=== PATIENT | female | born 1985 | race Caucasian/White ===

== ENCOUNTER 2017-01-02 05:02 | Inpatient (IN) | payer BC ==
--- NOTE | 2017-01-01 13:33 | PCM.PREANE ---
<Anthony Weller E - Last Filed: 01/01/17 13:31> Preanesthetic Assessment - ANESTHESIA/TRANSFUSION/FAMILY HX Anesthesia/Transfusion History: No Prior Transfusion(s), Prior Anesthesia Other Type of Anesthesia Reaction Comment: DENIES ANY PROBLEMS WITH ANESTHESIA Family History of Anesthesia Reaction: No - REVIEW OF SYSTEMS Constitutional: Reports: no symptoms PROCED TECH: Reports: no symptoms Respiratory: Reports: no symptoms Cardiovascular: Reports: no symptoms GI: Reports: no symptoms Other: Reports: none - PHYSICAL ASSESSMENT Height: 5 ft 5 in Weight: 182 lb ASA Class: 2 - LAB Values: Laboratory Last Values WBC 5.94 K/uL (4.0-11.0) 01/02/17 05:40 RBC 3.75 M/uL (4.30-5.90) L 01/02/17 05:40 Hgb 11.5 g/dL (12.0-16.0) L 01/02/17 05:40 Hct 34.7 % (36.0-46.0) L 01/02/17 05:40 MCV 92.5 fL (80.0-98.0) 01/02/17 05:40 MCH 30.7 pg (27.0-32.0) 01/02/17 05:40 MCHC 33.1 g/dL (31.0-37.0) 01/02/17 05:40 RDW Std Deviation 45.8 fl (28.0-62.0) 01/02/17 05:40 RDW Coeff of Yamila 14 % (11.0-15.0) 01/02/17 05:40 Plt Count 223 K/uL (150-400) 01/02/17 05:40 MPV 9.40 fL (7.40-12.00) 01/02/17 05:40 Blood Type A POSITIVE 01/02/17 05:40 Antibody Screen NEGATIVE 01/02/17 05:40 - ALLERGIES Allergies/Adverse Reactions: Allergies Allergy/AdvReac Type Severity Reaction Status Date / Time No Known Allergies Allergy Verified 01/02/17 05:12 - ANESTHESIA PLAN Anesthesia Type Planned: general anesthesia, spinal (with duramorph) - ACKNOWLEDGEMENTS Pt an appropriate candidate for the planned anesthesia: Yes Alternatives and risks of anesthesia discussed w pt/guardian: Yes Pt/Guardian understands and agree with anesthesia plan: Yes PreAnesthesia Questionnaire HEENT History: Reports: None Cardiovascular History: Reports: None Respiratory History: Reports: None Gastrointestinal History: Reports: GERD, Other (see below) Other Gastrointestinal History: occasional heartburn with Genitourinary History: Reports: None RELIEF PHARMACIST History: Reports: LMP (Approximate): Musculoskeletal History: Reports: None Neurological History: Reports: None Psychiatric History: Reports: None Endocrine/Metabolic History: Reports: Obesity/BMI 30+ Hematologic History: Reports: Anemia Immunologic History: Reports: None Oncologic (Cancer) History: Reports: None Dermatologic History: Reports: None - Infectious Disease History Infectious Disease History: Reports: None - Past Surgical History Head Surgeries/Procedures: Reports: None Female Surgical History: Reports: section - SUBSTANCE USE Smoking Status *Q: Former Smoker Number of Drinks Per Day: 0 Recreational Drug Use History: No - HOME MEDS Home Medications: Home Meds Iron 1 tab PO DAILY 04/14/14 [History] Vit #108/Iron/FA [ One Tablet] 1 each PO DAILY 04/14/14 [ History] - CURRENT (IN HOUSE) MEDS Current Meds: Current Medications Citric Acid/Sodium Citrate (Bicitra Solution) 30 ml PO .ONCE MARIANO Last Admin: 01/02/17 07:18 Dose: 30 ml Lactated Ringer's (Ringers, Lactated) 1,000 mls @ 500 mls/hr IV .BOLUS [facility]IANO Last Admin: 01/02/17 06:31 Dose: 999 mls/hr Sodium Chloride (Saline Flush) 10 ml FLUSH ASDIRECTED PRN PRN Reason: Keep Vein Open Sodium Chloride (Saline Flush) 2.5 ml FLUSH ASDIRECTED PRN PRN Reason: Keep Vein Open Discontinued Medications Cefazolin Sodium/Dextrose 2 gm (/ Premix) 50 mls @ 100 mls/hr IV ONETIME ONE Stop: 01/02/17 05:56 <Serafin Lewis - Last Filed: 01/02/17 07:21> Preanesthetic Assessment - ANESTHESIA/TRANSFUSION/FAMILY HX Anesthesia/Transfusion History: No Prior Transfusion(s), Prior Anesthesia ( Prior in 2014 here) Family History of Anesthesia Reaction: No Intubation History: Unknown - REVIEW OF SYSTEMS Constitutional: Reports: no symptoms PROCED TECH: Reports: no symptoms Respiratory: Reports: no symptoms Cardiovascular: Reports: no symptoms GI: Reports: no symptoms Other: Reports: none (except GERD of ) - PHYSICAL ASSESSMENT ASA Class: 2 Mental Status: alert & oriented x3 Dentition: Reports: normal dentition Thyro-Mental Finger Breadths: 3 Mouth Opening Finger Breadths: 3 ROM/Head Extension: full Respiratory Status: lungs clear to auscultation bilaterally Cardiovascular Status: regular rate & rhythm, normal S1, S2, no murmur, blood pressure WNL - BLOOD Blood Available: Yes Product(s) Available: PRBC (T and S) - ANESTHESIA PLAN Medication Ordered: Antacids Preop Beta Michael: No Anesthesia Type Planned: spinal - ACKNOWLEDGEMENTS Pt an appropriate candidate for the planned anesthesia: Yes Alternatives and risks of anesthesia discussed w pt/guardian: Yes Pt/Guardian understands and agree with anesthesia plan: Yes
[2017-01-02] MEDS ORDERED: ceFAZolin 2 GM in Premix Bag 1 BAG IV ONE (05:27)
[2017-01-02] MEDS ORDERED: Sodium Chloride 0.9% 10 ML Syringe FLUSH PRN (05:27)
[2017-01-02] MEDS ORDERED: Sodium Chloride 0.9% 2.5 ML Syringe FLUSH PRN (05:27)
[2017-01-02] MEDS ORDERED: Citric Acid/Sodium Citrate Solution 30 ML Cup PO SCH (05:30)
[2017-01-02] MEDS: Lactated Ringers 1,000 ML IV SCH ×5 (05:40→20:38)
[2017-01-02] MEDS ORDERED: Octyl 2-Cyanoacrylate 1 Tube ONE (07:20)
[2017-01-02] MEDS ORDERED: Oxytocin 10 Units/1 ML SDV ONE (07:31)
[2017-01-02] MEDS ORDERED: Morphine PF 10 MG/10 ML SDV ONE (07:31)
[2017-01-02] MEDS ORDERED: Phenylephrine/Normal Saline 100 MCG/ML 10 ML Syringe ONE (08:04)
[2017-01-02] MEDS ORDERED: Ondansetron 4 MG/2 ML SDV ONE (08:27)
[2017-01-02] MEDS ORDERED: Naloxone 0.4 MG/ML Syringe IVPUSH PRN (08:32)
[2017-01-02] MEDS ORDERED: Nalbuphine 10 MG/1 ML Vial IVPUSH PRN (08:32)
[2017-01-02] MEDS ORDERED: diphenhydrAMINE 50 MG/ML SDV IVPUSH PRN ×2 (08:32→08:53)
[2017-01-02] MEDS ORDERED: fentaNYL 100 MCG/2 ML SDV IVPUSH PRN (08:33)
[2017-01-02] MEDS ORDERED: ePHEDrine 50 MG/ML SDV ONE (08:38)
[2017-01-02] MEDS ORDERED: Bisacodyl 10 MG Supp RECTAL PRN (08:53)
[2017-01-02] MEDS ORDERED: Aluminum Hydroxide/Magnesium Hydroxide/Simethicone Susp 30 ML Cup PO PRN (08:53)
[2017-01-02] MEDS ORDERED: Simethicone 80 MG Tab.Chew PO PRN (08:53)
[2017-01-02] MEDS ORDERED: Ondansetron 4 MG/2 ML SDV IV PRN (08:53)
[2017-01-02] MEDS ORDERED: Lanolin 100% Cream 7 GM Tube TOP PRN (08:53)
[2017-01-02] MEDS ORDERED: Acetaminophen/oxyCODONE 325-5 MG Tab PO PRN ×2 (08:53)
--- NOTE | 2017-01-02 09:04 | PCM.OPNOTE ---
- General Post-Op/Procedure Note Date of Surgery/Procedure: 01/02/17 Operative Procedure(s): Repeat LTCS with bilateral salpingectomy Findings: Term Female APGARs 8, 9 weight 3410 gm. Intact placenta with 3V cord. Normal appearing pelvis with dense uterovesicle adhesions. Pre Op Diagnosis: Previous LTCS x 2--desires repeat. Undesired fertility Post-Op Diagnosis: same Anesthesia Technique: Spinal Primary Surgeon: Tierra Noel Fluid Replacement, Intraop: 1,600 EBL in mLs: 700 Complications: none known Condition: Good Free Text/Narrative:: Intake & Output 01/01/17 01/02/17 01/02/17 22:59 06:59 14:59 Intake Total 1000 Balance 1000 Dictation [id number]
[2017-01-02] MEDS: Ketorolac 30 MG/ML SDV IVPUSH SCH ×3 (09:17→21:54)
--- NOTE | 2017-01-02 09:30 | PCM.POSTAN ---
POST ANESTHESIA ASSESSMENT - MENTAL STATUS Mental Status: alert, oriented - RESPIRATORY Respiratory Status: respiratory rate WNL, airway patent, O2 saturation stable - CARDIOVASCULAR CV Status: pulse rate WNL, blood pressure stable - GASTROINTESTINAL GI Status: no symptoms - PAIN Pain Score: 0 (receding spinal) - POST OP HYDRATION Hydration Status: adequate & stable
[2017-01-02] MEDS: Docusate Sodium 100 MG Cap PO SCH ×2 (12:44→21:55)
--- NOTE | 2017-01-02 20:08 | PCM48HPAN ---
Post Anesthesia Note - EVALUATION WITHIN 48HRS OF ANESTHETIC Vital Signs in Normal Range: Yes Patient Participated in Evaluation: Yes Respiratory Function Stable: Yes Airway Patent: Yes Cardiovascular Function Stable: Yes Hydration Status Stable: Yes Pain Control Satisfactory: Yes Nausea and Vomiting Control Satisfactory: Yes Mental Status Recovered: Yes - COMMENTS/OBSERVATIONS Free Text/Narrative:: Pt has full return of sensation and motor movement to lower extremities. Pain controlled. No nausea. Reports mild itching.
[2017-01-03] MEDS: Ketorolac 30 MG/ML SDV IVPUSH SCH ×2 (03:13→09:03)
--- NOTE | 2017-01-03 06:12 | OR ---
SURGEON: Tierra Noel M.D. DATE OF PROCEDURE: 01/02/17 PREOPERATIVE DIAGNOSES: 1. Thirty-nine week intrauterine . 2. Previous low-transverse section x2, desires repeat. 3. Undesired fertility. POSTOPERATIVE DIAGNOSES: 1. Thirty-nine week intrauterine . 2. Previous low-transverse section x2, desires repeat. 3. Undesired fertility. PROCEDURE: Repeat low-transverse section with bilateral salpingectomy. ANESTHESIA: Spinal. ESTIMATED BLOOD LOSS: 700 mL. FLUIDS: 1600 mL of crystalloid. URINE OUTPUT: 200 mL of clear urine. FINDINGS: Term female. score 8 at 1 minutes, 9 at 5 minutes. Weight of 3410 g. Intact placenta, three-vessel cord. Normal-appearing pelvis other than dense uterovesical adhesions. DISPOSITION: The patient to PACU, to nursery, stable. DESCRIPTION OF PROCEDURE: Arlin is a 31-year-old, G3, P2, at 39 weeks gestation, who presented this morning for scheduled repeat delivery. Risks of procedure have been discussed and informed consent obtained. She also no longer desires childbearing and approval from the Ethics Committee has been obtained to perform tubal ligation at the time of her repeat . The patient was taken to operating room, where she underwent spinal anesthetic, was then placed in dorsal spine position, leftward tilt. SCDs to lower extremities. Palma to gravity. She was prepped and draped in the usual sterile fashion. Received prophylactic antibiotics. A time-out was performed. Anesthesia was tested and found to be adequate. The previous Pfannenstiel scar was now excised. Subcutaneous tissue was incised down the level of the midline fascia which was incised in the midline. The fascia was now dissected sharply and bluntly laterally on either side. Superior aspect of fascia was tented upward, dissected sharply and bluntly from underlying muscles, and in similar aspect, performed the inferior aspect of fascia. Rectus muscles were now sharply in the midline and the peritoneum was tented upward and entered sharply. The rectus muscles and peritoneum were now lateralized bluntly. Uterine position was palpated, there was dense uterovesical adhesions noted. The self-retaining tractor was now gently placed and the uterovesical adhesions were lysed using Metzenbaum scissors. Bladder blade was now mobilized away from lower uterine segment. Low transverse hysterotomy was performed. Uterine cavity was entered with the blunt end of the scalpel. There was a very significant left-sided venous plexus which was difficult to avoid during the extension of the hysterotomy. Hysterotomy was now lateralized. The artificial rupture of membranes was performed, clear fluid was returned. The infant's head was flexed and delivered from the pelvis. Fundal pressure was applied. The infant's head was delivered, followed by anterior shoulder, posterior shoulder and remainder of the body without difficulty. 's oropharynx and nares were bulb suctioned. Cord was clamped x2 and cut. Infant was handed off to attending nursing staff. Cord arterial, cord venous, cord blood sampling were obtained. The placenta was now delivered. Uterine cavity was cleared of all clot and debris. Hysterotomy was repaired using 0 Vicryl in continuous running locked fashion. There was a fair amount of increased bleeding along the left lateral aspect due to the venous plexus. However, care was taken to delineate this region and placed three figure-of- eight sutures incorporating the vessels. Hemostasis was thereafter evident. The hysterotomy was now re-imbricated. Area of midline oozing was replicated with [id number] sutures. Hemostasis was now evident. Uterus remained firm. Uterus was exteriorized. At this point, attention was turned to performing bilateral salpingectomy. The right fallopian tube was isolated using Harmonic wave, was able to perform salpingectomy and in similar aspect, performed on the left side. Tubes will be sent to Pathology for further analysis. The posterior aspect of the uterus was inspected, no defects or hematomas found be forming. The region was well irrigated and suction dried. Salpingectomy site was again inspected, well irrigated, suction dried and found to be hemostatic. Uterus was returned to the abdominal cavity. Hysterotomy was again inspected and found to be hemostatic. Salpingectomy sites now once again inspected and found to be hemostatic. Colonic gutters were cleared of all clot and debris, well irrigated and suction dried. The self-retaining retractor was gently removed. Bladder blade was placed. Hysterotomy was again inspected and found to be hemostatic. Salpingectomy site once again inspected and found to be hemostatic. Therefore, rectus muscles were reapproximated using O Vicryl in inverted mattress suture technique. Anterior aspect of the muscle, posterior aspect of fascia were closely inspected, any areas of oozing were cauterized. The rectus fascia was reapproximated using 0 Vicryl in continuous running fashion beginning at the lateral side and meeting in the midline. Subcutaneous tissue was now well irrigated and suction dried, any areas of oozing were cauterized. The skin was reapproximated using 3-0 Vicryl on a Mika needle in a subcuticular fashion and replicated with Dermabond. Uterus remained firm. Sponge, instrument, needle counts correct x2. The patient tolerated the procedure well. She will go to PACU in stable condition. Infant to nursery. JESSICA / [facility] /[id number]
--- NOTE | 2017-01-03 08:48 | PCM.PNPP ---
- General Info Date of Service: 01/03/17 Functional Status: Reports: pain controlled, tolerating diet, ambulating, urinating - Review of Systems General: Denies: fever, weakness Pulmonary: Denies: shortness of breath Cardiovascular: Denies: chest pain, palpitations, lightheadedness Gastrointestinal: Denies: Nausea, Vomiting Genitourinary: Denies: flank pain Skin: Reports: no symptoms Psychiatric: Reports: no symptoms - General Info Date of Service: 01/03/17 - Patient Data Vital Signs - most recent: Last Vital Signs Temp 36.9 C 01/03/17 04:00 Pulse 74 01/03/17 07:54 Resp 16 01/03/17 07:00 BP 115/59 L 01/03/17 04:00 Pulse Ox 98 01/03/17 07:54 Weight - most recent: 82.554 kg I&O - last 24 hours: Intake & Output 01/02/17 01/03/17 01/03/17 22:59 06:59 14:59 Intake Total 1500 Output Total 375 2250 Balance -375 -750 Lab Results - last 24 hrs: Laboratory Results - last 24 hr 01/03/17 Range/Units 05:07 Hgb 10.6 L (12.0-16.0) g/dL Hct 31.9 L (36.0-46.0) % Med Orders - Current: Current Medications Al Hydroxide/Mg Hydroxide (Mag-Al Plus) 30 ml PO Q8H PRN PRN Reason: Heartburn Bisacodyl (Dulcolax) 10 mg RECTAL .ONCE PRN PRN Reason: Constipation Citric Acid/Sodium Citrate (Bicitra Solution) 30 ml PO .ONCE MARIANO Last Admin: 01/02/17 07:18 Dose: 30 ml Diphenhydramine HCl (Benadryl) 25 mg IVPUSH Q6H PRN PRN Reason: Itching or Nausea Docusate Sodium (Colace) 100 mg PO BID [facility] Last Admin: 01/02/17 21:55 Dose: 100 mg Emollient Ointment (Lansinoh Hpa) 0 gm TOP ASDIRECTED PRN PRN Reason: Sore Nipples Last Admin: 01/02/17 14:55 Dose: 1 tube Fentanyl (Sublimaze) 25 - 50 mcg IVPUSH Q30M PRN PRN Reason: Pain Stop: 01/04/17 14:00 Lactated Ringer's (Ringers, Lactated) 1,000 mls @ 500 mls/hr IV .BOLUS [facility] Last Admin: 01/02/17 07:47 Dose: 999 mls/hr Lactated Ringer's (Ringers, Lactated) 1,000 mls @ 125 mls/hr IV ASDIRECTED [facility] Last Admin: 01/02/17 20:38 Dose: 125 mls/hr Ibuprofen (Motrin) 800 mg PO Q8H PRN PRN Reason: mild pain or fever Ketorolac Tromethamine (Toradol) 30 mg IVPUSH Q6H MARIANO Stop: 01/03/17 09:01 Last Admin: 01/03/17 03:13 Dose: 30 mg Ondansetron HCl (Zofran) 4 mg IV Q4H PRN PRN Reason: Nausea/Vomiting Oxycodone/Acetaminophen (Percocet 325-5 Mg) 1 - 2 tab PO Q6H PRN PRN Reason: Pain Stop: 01/04/17 14:00 Oxycodone/Acetaminophen (Percocet 325-5 Mg) 1 tab PO Q4H PRN PRN Reason: Pain (moderate 4-6) Oxycodone/Acetaminophen (Percocet 325-5 Mg) 2 tab PO Q4H PRN PRN Reason: Pain (moderate 4-6) Simethicone (Simethicone) 80 mg PO Q4H PRN PRN Reason: Gas Sodium Chloride (Saline Flush) 10 ml FLUSH ASDIRECTED PRN PRN Reason: Keep Vein Open Sodium Chloride (Saline Flush) 2.5 ml FLUSH ASDIRECTED PRN PRN Reason: Keep Vein Open Discontinued Medications Diphenhydramine HCl (Benadryl) 25 mg IVPUSH Q4H PRN PRN Reason: Itching Stop: 01/03/17 08:32 Ephedrine Sulfate (Ephedrine Sulfate) Confirm Administered Dose 50 mg .ROUTE .STK-MED ONE Stop: 01/02/17 08:39 Cefazolin Sodium/Dextrose 2 gm (/ Premix) 50 mls @ 100 mls/hr IV ONETIME ONE Stop: 01/02/17 05:56 Morphine Sulfate (Duramorph Pf) Confirm Administered Dose 10 mg .ROUTE .STK-MED ONE Stop: 01/02/17 07:32 Nalbuphine HCl (Nubain) 5 mg IVPUSH Q3H PRN PRN Reason: Pruritis Stop: 01/03/17 08:32 Naloxone HCl (Narcan) 0.1 mg IVPUSH ONETIME PRN PRN Reason: Other Stop: 01/03/17 08:32 Octyl Cyanoacrylate (Dermabond Advance) Confirm Administered Dose 1 applic .ROUTE .STK-MED ONE Stop: 01/02/17 07:21 Ondansetron HCl (Zofran) Confirm Administered Dose 4 mg .ROUTE .STK-MED ONE Stop: 01/02/17 08:28 Oxytocin (Pitocin) Confirm Administered Dose 20 unit .ROUTE .STK-MED ONE Stop: 01/02/17 07:32 Phenylephrine HCl (Phenylephrine In Ns 100 Mcg/Ml) Confirm Administered Dose 1 mg .ROUTE .STK-MED ONE Stop: 01/02/17 08:05 - Infant Interaction Support Person: - Recovery Exam Fundal Tone: Firm Fundal Level: 1 Fingerbreadths Below Umbilicus Fundal Placement: Midline Lochia Amount: Scant Lochia Color: Rubra/Red Perineum Description: Intact, Minimal Bruising/Swelling Episiotomy/Laceration: None Bladder Status: Indwelling Catheter in Place Urinary Elimination: Indwelling Catheter - Exam General: alert, oriented Lungs: Normal respiratory effort Cardiovascular: regular rate, regular rhythm Abdomen: bowel sounds present, soft. No: CVA tenderness Extremities: no calf tenderness Skin: warm, dry Wound/Incisions: no drainage. No: erythema Psy/Mental Status: alert, normal affect - Problem List & Annotations (1) delivery delivered SNOMED Code(s): 088386283 Code(s): O82 - ENCOUNTER FOR DELIVERY WITHOUT INDICATION Status: Acute Current Visit: Yes - Problem List Review Problem List Initiated/Reviewed/Updated: Yes - My Orders Last 24 Hours: My Active Orders 01/02/17 08:53 Notify Provider Intake and Out [RC] ASDIRECTED Notify Provider Vital Signs [RC] ASDIRECTED Acetaminophen/oxyCODONE [Percocet 325-5 MG] 1 tab PO Q4H PRN Acetaminophen/oxyCODONE [Percocet 325-5 MG] 2 tab PO Q4H PRN Alum Hydrox/Mag Hydrox/Simeth [Mag-Al Plus] 30 ml PO Q8H PRN Bisacodyl [Dulcolax] 10 mg RECTAL .ONCE PRN Lanolin [Lansinoh HPA] See Dose Instructions TOP ASDIRECTED PRN Ondansetron [Zofran] 4 mg IV Q4H PRN Simethicone 80 mg PO Q4H PRN diphenhydrAMINE [Benadryl] 25 mg IVPUSH Q6H PRN Abdominal Binder [OM.PC] Routine Heat Therapy [OM.PC] Routine Ice Therapy [OM.PC] Routine 01/02/17 08:54 Patient Status [ADT] Routine Ambulate [RC] PER UNIT ROUTINE Antiembolic Devices [RC] PER UNIT ROUTINE Communication Order [RC] PER UNIT ROUTINE Communication Order [RC] PER UNIT ROUTINE Communication Order [RC] Per Unit Routine May Shower [RC] ASDIRECTED RT Incentive Spirometry [RC] Q2HWA Assess Lochia [WOMSER] Per Unit Routine Assess Uterine Involution [WOMSER] Per Unit Routine Breast Pump [WOMSER] Per Unit Routine Peripheral IV Discontinue [OM.PC] Routine Sequential Compression Device [OM.PC] Per Unit Routine 01/02/17 09:00 Docusate Sodium [Colace] 100 mg PO BID Ketorolac [Toradol] 30 mg IVPUSH Q6H Lactated Ringers [Ringers, Lactated] 1,000 ml IV ASDIRECTED 01/02/17 Lunch Regular Diet [DIET] 01/03/17 15:00 Ibuprofen [Motrin] 800 mg PO Q8H PRN - Assessment Assessment:: POD 1 status post Repeat LTCS/Bilateral salpingectomy - Plan Plan:: Patient is doing well overall--continue postoperative cares. Ambulate halls, may shower.
[2017-01-03] MEDS: Docusate Sodium 100 MG Cap PO SCH ×2 (09:02→20:32)
[2017-01-03] MEDS ORDERED: Ibuprofen 800 MG Tab PO PRN (15:00)
[2017-01-03] MEDS: Acetaminophen/oxyCODONE 325-5 MG Tab PO PRN (20:32)
[2017-01-04] MEDS: Acetaminophen/oxyCODONE 325-5 MG Tab PO PRN (06:05)
--- NOTE | 2017-01-04 08:40 | PCM.PNPP ---
- General Info Date of Service: 01/04/17 Functional Status: Reports: pain controlled, tolerating diet, ambulating - Review of Systems General: Reports: no symptoms HEENT: Reports: no symptoms Pulmonary: Reports: no symptoms Cardiovascular: Reports: no symptoms Gastrointestinal: Reports: No symptoms Genitourinary: Reports: no symptoms Musculoskeletal: Reports: no symptoms Skin: Reports: no symptoms Neurological: Reports: no symptoms Psychiatric: Reports: no symptoms - Patient Data Vital Signs - most recent: Last Vital Signs Temp 36.7 C 01/04/17 04:50 Pulse 69 01/04/17 04:50 Resp 16 01/04/17 04:50 BP 125/76 01/04/17 04:50 Pulse Ox 97 01/04/17 04:50 Weight - most recent: 82.554 kg Med Orders - Current: Current Medications Al Hydroxide/Mg Hydroxide (Mag-Al Plus) 30 ml PO Q8H PRN PRN Reason: Heartburn Last Admin: 01/03/17 15:30 Dose: 30 ml Bisacodyl (Dulcolax) 10 mg RECTAL .ONCE PRN PRN Reason: Constipation Citric Acid/Sodium Citrate (Bicitra Solution) 30 ml PO .ONCE [facility] Last Admin: 01/02/17 07:18 Dose: 30 ml Diphenhydramine HCl (Benadryl) 25 mg IVPUSH Q6H PRN PRN Reason: Itching or Nausea Docusate Sodium (Colace) 100 mg PO BID [facility] Last Admin: 01/03/17 20:32 Dose: 100 mg Emollient Ointment (Lansinoh Hpa) 0 gm TOP ASDIRECTED PRN PRN Reason: Sore Nipples Last Admin: 01/02/17 14:55 Dose: 1 tube Fentanyl (Sublimaze) 25 - 50 mcg IVPUSH Q30M PRN PRN Reason: Pain Stop: 01/04/17 14:00 Lactated Ringer's (Ringers, Lactated) 1,000 mls @ 500 mls/hr IV .BOLUS [facility] Last Admin: 01/02/17 07:47 Dose: 999 mls/hr Lactated Ringer's (Ringers, Lactated) 1,000 mls @ 125 mls/hr IV ASDIRECTED [facility] Last Admin: 01/02/17 20:38 Dose: 125 mls/hr Ibuprofen (Motrin) 800 mg PO Q8H PRN PRN Reason: mild pain or fever Ondansetron HCl (Zofran) 4 mg IV Q4H PRN PRN Reason: Nausea/Vomiting Oxycodone/Acetaminophen (Percocet 325-5 Mg) 1 - 2 tab PO Q6H PRN PRN Reason: Pain Stop: 01/04/17 14:00 Last Admin: 01/04/17 06:05 Dose: 2 tab Oxycodone/Acetaminophen (Percocet 325-5 Mg) 1 tab PO Q4H PRN PRN Reason: Pain (moderate 4-6) Last Admin: 01/03/17 09:02 Dose: 1 tab Oxycodone/Acetaminophen (Percocet 325-5 Mg) 2 tab PO Q4H PRN PRN Reason: Pain (moderate 4-6) Last Admin: 01/03/17 15:20 Dose: 2 tab Simethicone (Simethicone) 80 mg PO Q4H PRN PRN Reason: Gas Sodium Chloride (Saline Flush) 10 ml FLUSH ASDIRECTED PRN PRN Reason: Keep Vein Open Sodium Chloride (Saline Flush) 2.5 ml FLUSH ASDIRECTED PRN PRN Reason: Keep Vein Open Discontinued Medications Diphenhydramine HCl (Benadryl) 25 mg IVPUSH Q4H PRN PRN Reason: Itching Stop: 01/03/17 08:32 Ephedrine Sulfate (Ephedrine Sulfate) Confirm Administered Dose 50 mg .ROUTE .STK-MED ONE Stop: 01/02/17 08:39 Cefazolin Sodium/Dextrose 2 gm (/ Premix) 50 mls @ 100 mls/hr IV ONETIME ONE Stop: 01/02/17 05:56 Ketorolac Tromethamine (Toradol) 30 mg IVPUSH Q6H MARIANO Stop: 01/03/17 09:01 Last Admin: 01/03/17 09:03 Dose: 30 mg Morphine Sulfate (Duramorph Pf) Confirm Administered Dose 10 mg .ROUTE .STK-MED ONE Stop: 01/02/17 07:32 Nalbuphine HCl (Nubain) 5 mg IVPUSH Q3H PRN PRN Reason: Pruritis Stop: 01/03/17 08:32 Naloxone HCl (Narcan) 0.1 mg IVPUSH ONETIME PRN PRN Reason: Other Stop: 01/03/17 08:32 Octyl Cyanoacrylate (Dermabond Advance) Confirm Administered Dose 1 applic .ROUTE .STK-MED ONE Stop: 01/02/17 07:21 Ondansetron HCl (Zofran) Confirm Administered Dose 4 mg .ROUTE .STK-MED ONE Stop: 01/02/17 08:28 Oxytocin (Pitocin) Confirm Administered Dose 20 unit .ROUTE .STK-MED ONE Stop: 01/02/17 07:32 Phenylephrine HCl (Phenylephrine In Ns 100 Mcg/Ml) Confirm Administered Dose 1 mg .ROUTE .STK-MED ONE Stop: 01/02/17 08:05 - Interaction Disposition, : [place] in Room with Family Interaction: Holding Feeding: Breastfed ; Nursed Well Support Person: - Recovery Exam Fundal Tone: Firm Fundal Level: At Umbilicus Fundal Placement: Midline Lochia Amount: Scant Lochia Color: Rubra/Red Perineum Description: Intact, Minimal Bruising/Swelling Episiotomy/Laceration: None Bladder Status: Nonpalpable Urinary Elimination: Indwelling Catheter - Exam General: alert, oriented Neck: supple Lungs: Clear to auscultation, Normal respiratory effort Cardiovascular: regular rate, regular rhythm Abdomen: bowel sounds present, soft, no tenderness, no distension Extremities: no edema Skin: warm, dry, intact Wound/Incisions: healing well Neurological: no new focal deficit Psy/Mental Status: alert, normal affect, normal mood - Problem List Review Problem List Initiated/Reviewed/Updated: Yes - Assessment Assessment:: POD 2 status post Repeat LTCS/Bilateral salpingectomy. Stable, minimal lochia, pain well controlled. well, would like to go home today. - Plan Plan:: Dismiss to home, discharge instructions reviewed.
[2017-01-04 08:55] VITALS: BP 117/77
[2017-01-04] MEDS: Docusate Sodium 100 MG Cap PO SCH (09:20)
== END 2017-01-04 11:25 | disposition home or self-care (01) | DRG 540 ==
LOC: MW.OB 05:02
PROVIDERS: ADMIT Obstetrics & Gynecology; ATTEND Obstetrics & Gynecology
PROC: 10D00Z1 Extraction of Products of Conception, Low, Open Approach (ICD-10-PCS; principal; 2017-01-02)
PROC: 0UB70ZZ Excision of Bilateral Fallopian Tubes, Open Approach (ICD-10-PCS; 2017-01-02)
DX: O34.211 Maternal care for low transverse scar from previous cesarean delivery (principal); Z3A.39 39 weeks gestation of pregnancy; Z37.0 Single live birth; Z30.2 Encounter for sterilization
CPT/HCPCS: 01961; 36415; 59025; 85014; 85018; 85027; 86850; 86900; 86901; 88302; A9270-GY; J0690; J1885; J2270; J2405; J2590; J7120